=== PATIENT | male | born 1950 | race Caucasian/White ===

== ENCOUNTER 2025-01-17 20:38 | Emergency (ER) | payer OTHER, SELFPAY ==
[2025-01-17] VITALS (8 sets, daily range): BP systolic 116–159; BP diastolic 70–96; BMI 22.6
--- NOTE | 2025-01-17 21:01 | EDRN ---
Pt had afib in 2022 after prostate surgery. Pt was put on diltiazem and converted the next morning. Pt thinks he has had 2-3 occurrences of afib over the past couple years. Around 1900 pt noted palpitations and took his HR = 138. No cp, sob,
n/v. Pt felt lightheaded. Pt took 1 mg ativan around 1930 and says his palpitations are a lot less now.
[2025-01-17] MEDS: CARDIZEM 15 MG IV (21:17)
[2025-01-17 21:20] LABS: % Basophils 0.9 % (0-2); % Eosinophils 5.7 % (0-6); % Immature Granulocytes 0.2 % (0-0.5); % Lymphocytes 36.2 % (20.5-51.1); % Monocytes 13.1 % (1.7-9.3); % Neutrophils 43.9 % (42.2-75.2); Absolute Basophils 0.1 10^3/uL (0-0.2); Absolute Eosinophils 0.3 10^3/uL (0-0.7); Absolute Monocytes 0.7 10^3/uL (0.1-0.6); Absolute Neutrophils 2.5 10^3/uL (1.4-6.5); Hematocrit 36.9 % (39.0-52.0); Hemoglobin 12.9 g/dL (13.0-18.0); Mean Corpuscular Hgb 30.6 pg (27.0-31.0); Mean Corpuscular Volume 87.4 fL (80.0-94.0); Mean Platelet Volume 9.3 fL (7.4-10.4); Nucleated Red Blood Cells % 0 % (-); Platelet Count 192 10^3/uL (130-400); Red Blood Cell Count 4.22 10^6/uL (4.70-6.10); Red Cell Dist. Width 12.7 % (11.5-14.5); White Blood Cell Count 5.6 10^3/uL (4.8-10.8)
[2025-01-17] MEDS: CARDIZEM 125 IV (21:22)
[2025-01-17 21:49] LABS: ALT (SGPT) 19 U/L (0-50); AST (SGOT) 26 U/L (17-59); Albumin 4.5 g/dl (3.5-5.0); Alkaline Phosphatase 46 U/L (38-126); Blood Urea Nitrogen 15 mg/dl (9-20); Calcium 9.4 mg/dl (8.4-10.2); Carbon Dioxide 24 mmol/L (22-30); Chloride 104 mmol/L (98-107); Estimated Creatinine Clearance 114 ml/min; Glucose 95 mg/dl (70-99); Sodium 135 mmol/L (135-145); Total Bilirubin 0.6 mg/dl (0.2-1.3); Total Protein 6.8 g/dl (6.3-8.2); eGFR > 60.00
[2025-01-17 21:56] LABS: Potassium 4.2 mmol/L (3.5-5.1)
[2025-01-17] MEDS: CARDIZEM CD 180 MG PO (22:53)
[2025-01-17] MEDS: CARDIZEM 10 MG IV (22:53)
--- NOTE | 2025-01-17 22:58 | ED.GENMED ---
History of Present Illness
General
Chief Complaint: Heart Rate Problem
Source: patient
Exam Limitations: none
Time Seen by Provider: 01/17/25 21:07
Nursing documentation reviewed up to this point in time: agreed with
History of Present Illness
History of Present Illness:
Patient with history of paroxysmal atrial fibrillation, currently taking Eliquis, presents to ED secondary to sudden onset of chest palpitations associated with dizziness, while he was at home. Patient does report having taken evening dose of
Eliquis prior to arrival. Denies nausea or vomiting. Denies chest pain. Denies shortness of breath. Denies recent illness. Denies recent travel or surgery. Denies back pain. Denies leg pain or swelling. Patient does state that there is
increased stress level at home, which he believes may be contributing to his current presentation. Patient states that he had 1 episode of atrial fibrillation noted, while he was in recovery after prostate surgery. Atrial fibrillation
spontaneously resolved following day at home. Shortly afterwards, patient wore Holter monitor, as recommended his motor express clerk, which revealed intermittent episodes of atrial fibrillation, which he did not feel. Since then, patient has been taking
Eliquis.
Review of Systems
Review of Systems
Allergies reviewed?: Yes
All Other Systems: ROS reviewed and negative except as documented in HPI and ROS
Constitutional: Reports no symptoms
EENT: Reports no symptoms
Respiratory: Reports no symptoms; Denies trouble breathing
Cardiac: Reports palpitations; Denies chest pain or syncope
ABD/GI: Reports no symptoms; Denies nausea or vomiting
Musculoskeletal: Reports no symptoms
Skin: Reports no symptoms
Neurological: Reports dizzy
Phy Exam
Physical Exam
Physical Exam:
Physical Exam
General: mild distress, not acutely ill. afebrile.
Head: nc/at. eomi
Neck: supple. normal range of motion. no jvd.
Heart: irregular irregular, tachycardic, no murmur.
Lungs: no acute respiratory distress. clear bilaterally
Abdomen: normal bowel sounds. not tender.
Neuro: alert and oriented x 3. no focal neurological deficits
Skin: no rash
Psychiatric: well kept. interactive and cooperative
Extremities: no edema. no calf tenderness.
Course
Orders/Labs/Results
Orders:
Orders
01/17/25 20:39
EKG [Electrocardiogram (*1)] Urgent
Reason for Study: Atrial Fibrillation
EKG- Treatment ONCE
01/17/25 21:04
Cardiac Monitoring- Treatment ONCE
IV Insert/Care/Rem.- Treatment PRN
01/17/25 21:10
Complete Blood Count/With Diff Urgent
Comprehensive Metabolic Panel Urgent
01/17/25 21:12
Diltiazem HCl [Cardizem] 15 mg IV NOW STA
01/17/25 21:15
Diltiazem 125 mg/125 ml Nss [Cardizem] 125 mg in 125 ml IV PER PROTOCOL
Initial dose in mg/hr, then titrate:: 5
Titrate to keep:: Heart rate 80-100 bpm
Titrate by mg/hr:: 5 mg/hr
Frequency of titrations (minutes):: 15
Maximum dose in mg/hr:: 15
01/17/25 22:45
Diltiazem Extended Release [Cardizem Cd] 180 mg PO NOW STA
Diltiazem HCl [Cardizem] 10 mg IV NOW STA
Abnormal Lab Results
01/17/25
21:10
RBC 4.22 L 10^6/uL
(4.70-6.10)
Hgb 12.9 L g/dL
(13.0-18.0)
Hct 36.9 L %
(39.0-52.0)
Absolute Monos (auto) 0.7 H 10^3/uL
(0.1-0.6)
Monocytes % 13.1 H %
(1.7-9.3)
Creatinine 0.6 L mg/dL
(0.7-1.3)
01/17/25 21:10
01/17/25 21:10
Vital Signs
Initial and Last Documented VS:
Initial Vital Signs
Temp Pulse Resp BP Pulse Ox
98.2 F 91 20 140/83 99
01/17/25 20:41 01/17/25 20:41 01/17/25 20:41 01/17/25 20:41 01/17/25 20:41
Last Documented Vital Signs
Temp Pulse Resp BP Pulse Ox
98.2 F 83 13 113/75 99
01/17/25 20:41 01/18/25 00:00 01/18/25 00:00 01/18/25 00:00 01/17/25 23:02
MDM/Problems Addressed
MDM/Problems Addressed:
History, exam, and EKG consistent with recurrent rapid atrial fibrillation. Patient started on Cardizem infusion, preceded by Cardizem bolus, with improved heart rate, along with improved symptoms. Discussed treatment options, including
cardioversion versus outpatient management with Cardizem and close follow-up with primary motor express clerk. At this time, patient prefers to be discharged home. As such, patient will be started on Cardizem CD 180 mg, along with recommendation to
follow-up with his motor express clerk, will consider return to ED with worsening symptoms.
*Pulse Oximetry
SaO2: 99
Patient hypoxic: no
*Critical Care Note
Total Time (30-74mins, 75-104mins- exclusive of procedures): 30 min
ED Attending Note
-
Portions of this chart may have been created with voice recognition software.� Occasional wrong word or��sound alike� substitutions may have occurred due to the inherent limitations of voice recognition software.
Discharge Plan
Departure
Patient Disposition: Home (Routine Discharge)
Date of Disposition: 01/18/25
Time of Disposition: 00:03
Patient with high blood pressure during this ER visit?: Yes
Condition: Fair
Discharge Problem:
Atrial fibrillation
Instructions: Atrial Fibrillation (DC)
Prescriptions:
New
diltiazem HCl [Cardizem CD] 180 mg capsule,extended release 24hr
180 mg PO DAILY Qty: 30 0RF
No Action
lorazepam 1 MG tablet
1 mg PO HSPRN PRN (Reason: sleep/anxiety)
famotidine 10 mg Tablet
10 mg PO TID
cyanocobalamin (vitamin B-12) 500 mcg Tablet
500 mcg PO DAILY
sertraline 50 mg Tablet
50 mg PO DAILY
Eliquis 5 mg Tablet
5 mg PO BID
Vitamin D3
2.5 mcg PO DAILY
magnesium glycinate
260 mg PO DAILY
Referrals:
Yehuda Daily MD [Family Provider, Family Practice]
Activity Restrictions/Additional Instructions:
As discussed, please follow-up with your motor express clerk for further evaluation and treatment. Please consider return to ED with worsening symptoms. Your prescription has been sent electronically to [facility] pharmacy in [place].
Interventions
Interventions:
*Risk Screen - Suicide Last Done: 01/17/25 20:55
*General Assessment Last Done: 01/17/25 20:41
*Neglect/Abuse Screening Last Done: 01/17/25 20:55
*ED- Fall Risk Assessment Last Done: 01/17/25 21:11
*Nursing Disposition Last Done: 01/18/25 00:15
ED- Cardiac Assessment Last Done: 01/17/25 21:11
ED- Pulmonary Assessment Last Done: 01/17/25 21:11
Discharge Date and Time
Discharge Date/Time: 01/18/25 00:15
Print Language: [id number]
[2025-01-18] VITALS: BP 113/75
== END 2025-01-18 00:15 | disposition home or self-care (01) ==
LOC: EMR 20:38
PROVIDERS: EMERGENCY PHYSICIAN Emergency Medicine; FAMILY PHYSICIAN Family Medicine
DX: I48.91 Unspecified atrial fibrillation (principal); Z79.01 Long term (current) use of anticoagulants
CPT/HCPCS: 96374; 96376; 99284; 80053; 85025; 93005